=== PATIENT | female | born 1970 | race Caucasian/White ===

== ENCOUNTER 2018-04-11 15:17 | Emergency (ER) | payer OTHER ==
[~2018-04-11] VITALS: Ht 157.5 cm; Wt 47.6 kg
[2018-04-11 15:24] VITALS: BP 106/69
--- NOTE | 2018-04-11 15:27 | NUR ---
TO LOBBY A/W BED, AMBULATORY, VSS. ERMD NOTED.
--- NOTE | 2018-04-11 16:16 | NUR ---
pt ambulates w/ steady gait to bed 3 at this time
--- NOTE | 2018-04-11 17:03 | NUR ---
Patient being evaluated by physician at bedside.
[2018-04-11] MEDS ORDERED: NEOMYCIN/POLYMYXIN/BACITRACIN 0.9 GM/1 PKT TP ONE (17:20)
[2018-04-11 17:48] VITALS: BP 110/70
--- NOTE | 2018-04-11 17:48 | NUR ---
Patient discharged with v/s stable. Written and verbal after care instructions given and explained. Patient verbalized understanding. Ambulatory with steady gait. All questions addressed prior to discharge. Advised to follow up with PMD.
== END 2018-04-11 17:48 | disposition home or self-care (01) ==
LOC: MED 15:17
DX: S61.252D Open bite of right middle finger without damage to nail, subsequent encounter (principal); W54.0XXD Bitten by dog, subsequent encounter
CPT/HCPCS: 99282

== ENCOUNTER 2018-04-14 19:23 | Emergency (ER) | payer SELFPAY ==
--- NOTE | 2018-04-14 19:35 | NUR ---
PATIENT CALLED TO BE TRIAGE, NO RESPONSE PATIENT LEFT WITHOUT BEING SEEN BY DR. COLLIER. NO FURTHER CARE PROVIDED FOR PATIENT.
== END 2018-04-14 19:35 | disposition left against medical advice (07) ==
LOC: MED 19:23
DX: Z53.21 Procedure and treatment not carried out due to patient leaving prior to being seen by health care provider (principal)

== ENCOUNTER 2018-04-14 22:19 | Emergency (ER) | payer OTHER ==
[~2018-04-14] VITALS: Ht 157.5 cm; Wt 47.6 kg
[2018-04-14 22:33] VITALS: BP 105/69
--- NOTE | 2018-04-14 22:35 | NUR ---
TO LOBBY A/W BED, AMBULATORY, VSS ERMD NOTED
--- NOTE | 2018-04-14 23:08 | NUR ---
PT TAKEN TO CHAIR E
--- NOTE | 2018-04-14 23:10 | NUR ---
ASSUMED CARE OF PT AT THIS TIME. PT PRESENTS FOR REFILL OF NORCO RX. AAOX4 WITH EVEN AND STEADY GAIT; PATIENT STATES PAIN OF 6/10; VSS; ER MD MADE AWARE OF PT STATUS. WILL CONTINUE TO MONITOR.
[2018-04-15 00:37] VITALS: BP 102/66
--- NOTE | 2018-04-15 00:38 | NUR ---
Patient discharged with v/s stable. Written and verbal after care instructions given and explained. Patient alert, oriented and verbalized understanding of instructions. Ambulatory with steady gait. All questions addressed prior to discharge. ID band removed. Patient advised to follow up with PMD. Rx of MOTRIN, TRAMADOL, given. Patient educated on indication of medication including possible reaction and side effects. Opportunity to ask questions provided and answered.
== END 2018-04-15 00:38 | disposition home or self-care (01) ==
LOC: MED 22:19
DX: S62.602D Fracture of unspecified phalanx of right middle finger, subsequent encounter for fracture with routine healing (principal); Z76.0 Encounter for issue of repeat prescription; X58.XXXD Exposure to other specified factors, subsequent encounter
CPT/HCPCS: 99283

== ENCOUNTER 2018-05-15 11:06 | Emergency (ER) | payer OTHER ==
[~2018-05-15] VITALS: Ht 157.5 cm; Wt 52.7 kg
[2018-05-15 11:20] VITALS: BP 114/71
--- NOTE | 2018-05-15 11:25 | NUR ---
47 Y.O FEMALE PRESENTS TO THE ED STATEING THERE IS A FOREIGN OBJECT IN HER MIDDLE FINGER NAIL BED. PT STATES THAT A MONTH AGO, HER DOG BIT HER AND SHE CAME TO THE ED RECEIVED STITICHES, CAME BACK 10 DAYS LATER FOR REMOVAL. SHE HAS SINCE LOST THE NAIL AND BELIEVES THERE IS SOMETHING IN THE NAIL BED. TO TOUCH THE NAIL BED CAUSES HER A GREAT DEAL OF PAIN AND STATES SHE HAS LOW PAIN TOLERANCE AND UNABLE TO TOUCH IT. PT DENIES ANY OTHER SYMPTOMS. LUNGS CLEAR BILATERALLY, S1S2 PRESENT. A&0X4. FULL RANGE OF MOTION AND ABLE TO AMBULATE SELF.
--- NOTE | 2018-05-15 11:40 | NUR ---
PT DECLINED TO HAVE STITCHES REMOVED
--- NOTE | 2018-05-15 11:40 | NUR ---
AT BEDSIDE ASSESSING PT
--- NOTE | 2018-05-15 12:40 | NUR ---
CAGE SPLINT GIVE, EDUCATION WELL
[2018-05-15 12:55] VITALS: BP 122/69
--- NOTE | 2018-05-15 12:56 | NUR ---
D/C PT HOME; IN PERSONAL VEHICLE. EDUCATED PT ON KEEPING FINGER DRY AND IN CAGE SPLINT. GAVE PT EDUCATION ON FINGER. DECLINED FURTHER QUESTIONS. EDUCATED PT ON SEEKING ORTHOPEDIC CARE IF PAIN PERSISTS AND WHEN TO RETURN TO ED. PT AMBULATED TO EXIT.
== END 2018-05-15 12:56 | disposition home or self-care (01) ==
LOC: MED 11:06
DX: S62.602D Fracture of unspecified phalanx of right middle finger, subsequent encounter for fracture with routine healing (principal); X58.XXXD Exposure to other specified factors, subsequent encounter
CPT/HCPCS: 99281